=== PATIENT | female | born 1980 | race Caucasian/White ===

== ENCOUNTER 2017-01-06 15:24 | Emergency (ER) | payer MEDICARE, OTHER | END 2017-01-06 17:18 | disposition home or self-care (01) | LOC: ER 15:24 | DX: J06.9 Acute upper respiratory infection, unspecified (principal); J32.9 Chronic sinusitis, unspecified; J02.9 Acute pharyngitis, unspecified; F17.210 Nicotine dependence, cigarettes, uncomplicated; H92.03 Otalgia, bilateral; Z79.891 Long term (current) use of opiate analgesic; Z79.1 Long term (current) use of non-steroidal anti-inflammatories (NSAID); Z88.1 Allergy status to other antibiotic agents ==